=== PATIENT | female | born 1975 | race African-American/Black ===

== ENCOUNTER 2016-04-15 14:05 | Emergency (ER) | payer OTHER ==
[~2016-04-15] VITALS: Ht 165.1 cm; Wt 86.3 kg
[2016-04-15 14:11] VITALS: Ht 165.1 cm; Wt 86.3 kg
[2016-04-15] MEDS ORDERED: BENZ100C70 PO (14:39)
[2016-04-15] MEDS ORDERED: PROM118S PO (14:39)
--- NOTE | 2016-04-15 16:53 | ERD ---
DATE OF SERVICE: 04/15/2016 HISTORY OF PRESENT ILLNESS: The patient is a 40-year-old female coming in complaining of cough and congestion and body aches for the last 2 days. The patient states she has had tactile fevers, but h as not checked her thermometer. She has had no nausea, no diarrhea. Last bowel movement was this m orning. Had a mild headache with some mild congestion. No shortness of breath, no sick contacts. She does have a sore throat. She has had a dry cough. MEDICAL PROBLEMS: Denies. ALLERGIES: DENIES. MEDICATIONS: Denied. PAST SURGICAL HISTORY: Denies. SOCIAL HISTORY: Stopped smoking 6 months ago. REVIEW OF SYSTEMS: A 12-point review of systems was done. Refer to HPI for positives. All other sy stems negative. PHYSICAL EXAMINATION VITAL SIGNS: Temperature is 98, pulse is 105, blood pressure is 115/83, respiratory rate 18, O2 sat 98% on room air. Pain intensity is 6/10. GENERAL: The patient is well appearing, well nourished, no acute distress. HEENT: Atraumatic. Conjunctivae are pink. Pupils equal, round, and reactive to light. There is no s cleral icterus. Tympanic membranes clear bilaterally. Oropharynx clear. No nystagmus or photophobia . CHEST: Clear to auscultation bilaterally. There are no rales, wheezes or rhonchi. HEART: Regular rate and rhythm. No murmurs, clicks, rubs or gallops. No S3 or S4. ABDOMEN: Soft, nontender and nondistended. Good bowel sounds. No rebound or guarding. No gross jason tonitis. No gross organomegaly or masses. No Mcclure sign or McBurney point tenderness. BACK: No midline or flank tenderness. SKIN: There is no apparent rash or petechia. The skin is warm and dry. DIAGNOSIS: Viral upper respiratory infection. MEDICAL DECISION MAKING: Patient's vital signs are stable. Exams are within normal limits. I have low suspicion for meningitis or sepsis, low suspicion for pneumonia, low suspicion for respiratory distress or hypoxia and low suspicion for bacterial HENT infection. The patient's symptoms are like ly associated with viral etiology. DISCHARGE: The patient is discharged stable. The patient is given a prescription for Tessalon, pro methazine with codeine and told to follow up with primary care within 1 to 2 days for re-evaluation. The patient was also given a note for work. All her questions answered at time of discharge. Dis charge summary given at the time of departure. The patient understood to comply with plan. Dictated By: MAXIMUS PATE for MARTA BARRAGAN/MINOR Conf#: [id number] DID#: [id number]
== END 2016-04-15 14:44 | disposition home or self-care (01) ==
LOC: FTE 14:05
DX: J06.9 Acute upper respiratory infection, unspecified (principal); Z87.891 Personal history of nicotine dependence
CPT/HCPCS: 99284

== ENCOUNTER 2016-07-01 07:14 | Day surgery (SDC) | payer OTHER ==
[2016-07-01] VITALS (12 sets, daily range): BP systolic 109–139; BP diastolic 65–81; PULSE 78–92; RESP 17–21; Ht 165.1 cm; Wt 82.0 kg
[~2016-07-01] VITALS: Ht 165.1 cm; Wt 82.0 kg
[~2016-07-01 07:14] MED LIST: BENZ100C70 PO; PROM118S PO
[2016-07-01] MEDS ORDERED: FENTAnyl 50 MCG/ML VIAL ONE (08:10)
[2016-07-01] MEDS ORDERED: NEOSTIGMINE 3 MG/3 ML SYRINGE ONE (08:10)
[2016-07-01] MEDS ORDERED: PROPOFOL 20 ML ONE (08:10)
[2016-07-01] MEDS ORDERED: GLYCOPYRROLATE 0.4 MG INJ ONE (08:10)
[2016-07-01] MEDS ORDERED: ROCURONIUM 50 MG INJ ONE (08:10)
[2016-07-01] MEDS ORDERED: LIDOCAINE 2% (SDV) 5 ML INJ ONE (08:10)
[2016-07-01] MEDS ORDERED: MIDAZOLAM 1 MG/ML 2 ML INJ ONE (08:11)
[2016-07-01] MEDS ORDERED: ONDANSETRON 4 MG INJ ONE (08:11)
[2016-07-01] MEDS ORDERED: SUCCINYLCHOLINE CHLORIDE 100 MG/5 ML SYG IV ONE (08:11)
[2016-07-01] MEDS ORDERED: DEXAMETHASONE 4 MG/ML 1 ML INJ ONE (08:11)
[2016-07-01] MEDS ORDERED: GABA400C14 PO (08:13)
[2016-07-01] MEDS ORDERED: PARO10TA76 PO (08:13)
[2016-07-01] MEDS ORDERED: CYCL-319 PO (08:13)
[2016-07-01] MEDS ORDERED: DICL50TA11 PO (08:13)
[2016-07-01] MEDS ORDERED: AMIT50TA3 PO (08:13)
[2016-07-01] MEDS ORDERED: LABETALOL HCL 20MG INJ IV PRN (08:30)
[2016-07-01] MEDS ORDERED: morphine (1 MG/ML) 10ML SYRINGE IV PRN ×3 (08:30)
[2016-07-01] MEDS ORDERED: MIDAZOLAM 1 MG/ML 2 ML INJ IV PRN (08:30)
[2016-07-01] MEDS ORDERED: hydrALAzine 20 MG INJ IV PRN (08:30)
[2016-07-01] MEDS ORDERED: ATROPINE 1 MG/10 ML SYRINGE IV PRN (08:30)
[2016-07-01] MEDS ORDERED: EPHEDrine SULFATE 50 MG/5 ML SYG IV PRN (08:30)
[2016-07-01] MEDS ORDERED: MEPERIDINE 25 MG INJ IV PRN (08:30)
[2016-07-01] MEDS ORDERED: ONDANSETRON 4 MG INJ IV PRN ×2 (08:30→13:30)
[2016-07-01] MEDS ORDERED: HYDROmorphONE (0.2 MG/ML) 10ML SYG IV PRN ×3 (08:30)
[2016-07-01] MEDS ORDERED: OXYCODONE/ACETAMINOPHEN (5/325) TAB PO PRN ×3 (08:30→13:30)
[2016-07-01] MEDS ORDERED: FENTAnyl 50 MCG/ML VIAL IV PRN ×2 (08:30)
[2016-07-01] MEDS ORDERED: DIPHENHYDRAMINE 50 MG INJ IV PRN (08:30)
--- NOTE | 2016-07-01 09:00 | HPN ---
Date/Time of Note Date/Time of Note DATE: 07/01/16 TIME: 09:00 Interval H&P Admission Note Pt. seen H&P reviewed: No system changes DESHAUN PACHECO MD July 01, 2016 09:00
[2016-07-01] MEDS ORDERED: POLYMYXIN/BACITRACIN 1L IRRIG ONE (09:02)
[2016-07-01] MEDS ORDERED: EPINEPHrine 0.1 MG/ML SYG ONE (09:02)
--- NOTE | 2016-07-01 09:23 | OPR ---
Date/Time of Note Date/Time of Note DATE: 07/01/16 TIME: 09:14 Operative Report Free Text/Dictation Plastic Surgery Operative Report Preoperative diagnosis: macromastia and cervicalgia Postoperative diagnosis: same Procedure:bilateral breast reduction Surgeon: melodie Wray.:n/a Anesthesia:general EBL:40cc IV fluids:per flow sheet Findings:n/a Complications:none Dispo:home Indications for procedure:40 yo F presents for a bilateral breast reduction. We discussed the risks, benefits, and alternatives of performing this procedure including the risks of bleeding, infection, wound healing problems, changes in nipple sensation, partial or total nipple necrosis, asymmetry, fat necrosis, seroma, and for revision. The patient states that she understands these risks and would like to proceed with the procedure. All questions were answered, no guarantees were given with regards the outcome of this procedure Description of procedure: Preoperatively, with the patient in the sitting position, a bilateral Leslie pattern reduction mammoplasty with vertical limbs of 8.5 cm and pedicle width of 9cm was marked. The patient was taken to the operating room at [facility] where general anesthesia was induced. Next, she was prepped and draped in the usual sterile fashion. First, the 42 mm areola marker was placed around the each areola and total of 60cc of a dilute epinephrine solution was injected into the planned area of de- epithelialization in each breast. The pedicles were then de-epithelialized with the 10 blade and scissors. Attention was then turned to the right breast where the incision around the pedicle was deepened with the peak plasma blade. Next, the remainder of the incisions were made with the peak plasma blade, and a medial flap was developed. A lateral flap was then developed with the plasma blade as well, and then the medial and lateral dissections were joined superiorly. The incisions around the pedicle were deepened to the level of the chest wall, taking special care to leave a fascial layer over the chest wall to preserve sensation, and then the tissue intervening between the flaps and pedicle was excised. The breast was irrigated with antibiotic irrigation, hemostasis was achieved with the bipolar cautery, and then the breast was towel clipped closed. Attention was then turned to the other breast where a similar procedure was carried out. The pedicle was incised, and then medial and lateral flaps were elevated, and then the dissection for joint superiorly. The tissue between the pedicle and the flaps was excised taking special care to leave a layer of fascia over the chest wall. The breast was irrigated with antibiotic irrigation , hemostasis was achieved with the bipolar cautery, and then the breast was towel clipped closed. The patient was sat up on the operating room table, symmetry was good, and therefore the patient was sat back down. A total of 60 mL of a dilute Exparel solution were then injected into the breasts. A #15 Pepe drain was inserted into each breast through a stab incision laterally and was secured with 2-0 nylon suture. Next, the incisions were closed with a deep layer of 3-0 Vicryl sutures, 4-0 Monocryl suture, and then skin glue. Total resection from the right was 1005g total resection from the left was 1030g. The nipples were pink and viable at the completion of the case. The patient tolerated the procedure well, there were no complications, she'll follow up in 1 week DESHAUN PACHECO MD July 01, 2016 09:23
[2016-07-01] MEDS ORDERED: BUPIVACAINE LIPOSOME/PF 266 MG/20 ML VIAL INFIL SCH (09:30)
[2016-07-01] MEDS ORDERED: CEFAZOLIN 1 GM INJ ONE (11:49)
[2016-07-01] MEDS ORDERED: LABETALOL HCL 20MG INJ ONE (12:34)
[2016-07-01] MEDS ORDERED: HYDROCODONE/APAP (5/325) TAB PO PRN (13:30)
[2016-07-01] MEDS ORDERED: morphine 2 MG INJ IV PRN (13:30)
== END 2016-07-01 17:12 | disposition home or self-care (01) ==
LOC: SDS 07:14
PROVIDERS: ATTEND Surgery Plastic and Reconstructive Surgery
DX: N62 Hypertrophy of breast (principal); M54.2 Cervicalgia
CPT/HCPCS: 19318; 88307; C9290; J0171; J0690; J1100; J1170; J2175; J2250; J2405; J2710; J3010; J7999; Z7512; Z7610